=== PATIENT | female | born 2000 | race African-American/Black ===

== ENCOUNTER 2020-08-16 15:19 | Outpatient (RCR) | payer OTHER, SELFPAY ==
[2020-08-20] MEDS: RHO(D) IMMUNE GLOBULIN 300 MCG SYRINGE IM (14:04)
== END 2020-11-14 23:59 | disposition home or self-care (01) ==
LOC: ANHLAB 15:19
PROVIDERS: Visit Provider Physician Assistant
DX: Z01.83 Encounter for blood typing (principal)
CPT/HCPCS: 36415; 86850

== ENCOUNTER 2020-08-18 14:53 | Outpatient (RCR) | payer OTHER, SELFPAY | END 2020-08-30 08:34 | disposition home or self-care (01) | LOC: ANHOBOP 14:53 | PROVIDERS: Visit Provider Obstetrics & Gynecology | DX: Z29.13 Encounter for prophylactic Rho(D) immune globulin (principal); O36.0990 Maternal care for other rhesus isoimmunization, unspecified trimester, not applicable or unspecified; Z3A.00 Weeks of gestation of pregnancy not specified | CPT/HCPCS: 36415; 85461; 90384; J2790 ==

== ENCOUNTER 2020-10-28 12:48 | Outpatient (CLI) | payer OTHER, SELFPAY ==
[2020-10-28 13:19] LABS: Hematocrit 30.2 % (37.0-47.0); Hemoglobin 9.9 g/dL (12.0-15.0); Mean Corpuscular HGB Conc 32.8 g/dl (32-36); Mean Corpuscular Hemoglobin 26.5 pg (26-34); Platelet Count Result 204 k/mm3 (150-375); Red Blood Count 3.73 M/mm3 (4.2-5.4); Red Cell Distribution Width 13.5 % (11.5-14.5); White Blood Count 7.5 K/mm3 (4.5-10.0)
[2020-10-29 07:01] LABS: Rapid Plasma Reagin Non-Reactive (NonReactive)
== END 2020-10-28 14:00 | disposition home or self-care (01) ==
LOC: ANHOBOP 12:56 → ANHLDR 12:57
PROVIDERS: Visit Provider Obstetrics & Gynecology
DX: Z01.818 Encounter for other preprocedural examination (principal)
CPT/HCPCS: 36415; 85027; 86592; 86850; 86880; 86900; 86901; 86902; 99199

== ENCOUNTER 2020-10-29 10:10 | Inpatient (IN) | payer OTHER, SELFPAY ==
--- NOTE | 2020-10-15 15:06 | PC.NURSE ---
PATIENT STATES BABY IS BREECH--WAS TOLD IF BABY DOES NOT TURN,SHE WILL BE A C/S PATIENT INSTRUCTED IF SHE IS A C/S ,SHE WILL NEED TO BE IN OB 2 HOURS BEFORE SURGERY AND NOTHING BY MOUTH AFTER MIDNIGHT THE NIGHT BEFORE SURGERY PATIENT GIVEN REQUISITION FOR PRE-OP LAB DRAWN
[2020-10-29] VITALS (47 sets, daily range): BP systolic 81–136; BP diastolic 51–95; PULSE 47–90; RESP 14–18; TEMP 36.3–36.7; O2SAT 99–100; BMI 24.5
--- NOTE | 2020-10-29 10:10 | LDADM ---
This patient, Tessa Servin, was admitted to OB Post 116 on 10/29/20 at 10:10. Plans for labor, pain management and were discussed with patient. Patient/family oriented to hospital policies and general routines including ID bracelet, bed and alarms, visiting hours, pain management, procedures, bathroom and other care routines, personal items, smoking policy, room service/diet and guest tray routines, infant security routines, and visiting hours. Patient/Family are encouraged to report perceived risks to care and to ask questions if they do not understand what they are told or what they should do. See OBIX for further documentation.
--- NOTE | 2020-10-29 10:20 | PCDIET ---
Dr. Sharma at bedside, ultrasound performed. breech presentation was confirmed
--- NOTE | 2020-10-29 10:20 | PM.IMHP ---
H&P: HPI History of Present Illness Date/Time: 10/29/20 10:20 19 year old primigravida female presents for RENARD at 38w5d. complicated by breech malpresentation, tobacco use, MTHFR, RhD negative, and FGR fetus. Due to growth restriction and breech need delivery. She now presents for primary low-transverse section for delivery of breech malpresentation under spinal anesthesia I explained her condition procedure and risk involved including but not limited to bleeding infection injury to bladder bowel baby pelvic vessels DVT pneumonia wound infection UTI risk of anesthesia as well as the risk hemorrhage and depression. She understands all this accepts and agrees to proceed Chief Complaint: FGR, breech,term , elective c section Review of Systems Review of Systems: All systems reviewed & are unremarkable except as noted in HPI and below Constitutional: Constitutional: Reports no additional constitutional complaints Eyes: Eyes: Reports no additional eye complaints ENT: Reports system reviewed and no additional complaints, except as documented Cardiovascular: Cardiovascular: Reports no additional cardiovascular complaints Respiratory: Respiratory: Reports no additional respiratory complaints Gastrointestinal: Gastrointestinal: Reports no additional gastrointestinal complaints Genitourinary: Genitourinary: Reports no additional female genitourinary complaints Musculoskeletal: Musculoskeletal: Reports no additional musculoskeletal complaints Integumentary/Breasts: Skin/Breast: Reports system reviewed and no additional complaints, except as docu Neurologic: Reports system reviewed and no additional complaints, except as documented Psychiatric: Psychiatric: Reports no additional psychiatric complaints Endocrine: Endocrine: Reports no additional endocrine complaints Hematologic/Lymphatic: Hematologic/Lymphatic: Reports no additional hematologic/lymphatic complaints Allergic/Immunologic: Allergic/Immunologic: Reports no additional allergic/immunologic complaints [facility] Past Medical History Medical History (Updated 10/29/20 @ 11:45 by Nestor Barroso MD) ADD (attention deficit disorder) 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 FGR ( growth retardation) History of candidal vulvovaginitis History of chlamydia History of gonorrhea History of trichomonal vaginitis Oppositional defiant behavior Rh negative status during Smoker STD (sexually transmitted disease) complicating , antepartum Term UTI (urinary tract infection) during Surgical History Surgical History (Updated 10/29/20 @ 11:46 by Nestor Barroso MD) History of adenoidectomy Family History Family History (Updated 10/29/20 @ 10:46 by Nestor Barroso MD) Grandparent Family history of heart disease in male family member before age 55 Multiple sclerosis Mother Bipolar 1 disorder Social History Social History (Updated 10/29/20 @ 10:46 by Nestor Barroso MD) Years smoked: 5 Smoking status: Current every day smoker Tobacco type: cigarettes Second hand tobacco smoke exposure: Yes Alcohol intake: former Substance use: former Substance use type: marijuana Living arrangements: with family Occupation/Education: unemployed Gender identity (if verbalized by the patient): Female Sexual Orientation (if Verbalized by the Patient): Straight or Heterosexual Spiritual care concerns: No Agree to blood products: Yes Meds Home Medications and Allergies Home Medications Medication Instructions Recorded Confirmed Type folic acid 1 mg PO BID 10/15/20 10/15/20 History prenat.vits,gaston,ioq-ifho-rmsod 1 tablet PO DAILY 10/15/20 10/15/20 History [ #2] Allergies Allergy/AdvReac Type Severity Reaction Status Date / Time No Known Allergies Allergy Verified 10/15/20 14:41
--- NOTE | 2020-10-29 10:22 | WPDHPUPDATE1 ---
History and Physical Update Update Date/Time: 10/29/20 10:22 History and Physical has been reviewed, including an updated exam of the patient. There are NO changes in the patient's condition. Risks, benefits, and alternatives have been discussed and questions answered. Patient agrees to proceed with procedure. 19 year old primigravida female presents for RENARD at 38w5d. complicated by breech malpresentation, tobacco use, MTHFR, RhD negative, and FGR fetus. Due to growth restriction and breech need delivery. She now presents for primary low-transverse section for delivery of breech malpresentation under spinal anesthesia I explained her condition procedure and risk involved including but not limited to bleeding infection injury to bladder bowel baby pelvic vessels DVT pneumonia wound infection UTI risk of anesthesia as well as the risk hemorrhage and depression. She understands all this accepts and agrees to proceed
--- NOTE | 2020-10-29 10:23 | WPDOBADMIT ---
Obstetrics - Admit Note Admission Note: record reviewed. No pertinent additions to the history and/or any subsequent changes in the physical findings that are not consistent with the expected course of the were found. Additions to the history and/or subsequent changes in the physical findings follow. None. 19 year old primigravida female presents for RENARD at 38w5d. complicated by breech malpresentation, tobacco use, MTHFR, RhD negative, and FGR fetus. Due to growth restriction and breech need delivery. She now presents for primary low-transverse section for delivery of breech malpresentation under spinal anesthesia I explained her condition procedure and risk involved including but not limited to bleeding infection injury to bladder bowel baby pelvic vessels DVT pneumonia wound infection UTI risk of anesthesia as well as the risk hemorrhage and depression. She understands all this accepts and agrees to proceed
[2020-10-29] MEDS: LACTATED RINGERS 1,000 ML 125 ML IV CONT ×2 (10:57→11:56)
--- NOTE | 2020-10-29 11:26 | WPDANESEPPF ---
Anes - Initial Pre Proc Eval Procedure: Operation Date: 10/29/20 12:00 Proposed Procedures p Primary Section - Nestor Barroso MD Date/Time: 10/29/20 11:26 Surgeon: Nestor Barroso MD Pre Op Diagnosis: C/Section Patient Data Age: 19 Gender: F Height: 5 ft 1 in Weight: 59 kg Last Vital Signs Pulse 54 L 10/29/20 11:01 BP 108/64 10/29/20 11:01 Allergies Allergy/AdvReac Type Severity Reaction Status Date / Time No Known Allergies Allergy Verified 10/15/20 14:41 Home Medications Medication Instructions Recorded Confirmed Type folic acid 1 mg PO BID 10/15/20 10/15/20 History prenat.vits,gaston,ucx-fybs-wqsnk 1 tablet PO DAILY 10/15/20 10/15/20 History [ #2] Patient hx anesthesia problems: none Family hx anesthesia problems: none PMFSH Past Medical History Medical History ADD (attention deficit disorder) Compound heterozygous MTHFR mutation [id number] malpresentation FGR ( growth retardation) History of candidal vulvovaginitis History of chlamydia History of gonorrhea History of trichomonal vaginitis Oppositional defiant behavior Rh negative status during Smoker STD (sexually transmitted disease) complicating , antepartum Term UTI (urinary tract infection) during Family History Family History Grandparent Family history of heart disease in male family member before age 55 Multiple sclerosis Mother Bipolar 1 disorder Social History Social History Years smoked: 5 Smoking status: Current every day smoker Tobacco type: cigarettes Second hand tobacco smoke exposure: Yes Alcohol intake: former Substance use: former Substance use type: marijuana Living arrangements: with family Occupation/Education: unemployed Gender identity (if verbalized by the patient): Female Sexual Orientation (if Verbalized by the Patient): Straight or Heterosexual Spiritual care concerns: No Agree to blood products: Yes Anes - Eval Final PreProcedure Day of Procedure 10/29/20 11:26 Patient weight: normal Heart: regular rate and rhythm Lungs: clear to auscultation Airway: Mallampati scale class II Neurological: alert and oriented Last oral intake: >/= 8 hours ASA classification: III Emergent: no Anesthetic plan: proceed Anesthesia type and monitoring: regional spinal and standard monitoring Informed Consent: The patient's anesthetic plan and its attendant risks and benefits were discussed with the patient/family/POA. Questions were solicited and answers provided to the satisfaction of the patient/family/POA.
[2020-10-29] MEDS: ceFAZolin 2 GM/D5W 50 ML 2 GM/50 ML BAG IVPB (12:21)
[2020-10-29 12:23] LABS: Amphetamine Screen Urine Negative (Negative); Barbiturate Screen Urine Negative (Negative); Benzodiazepines Screen Urine Negative (Negative); Cannabinoid Screen Urine Positive (Negative); Cocaine Screen Urine Negative (Negative); Methadone Screen Urine Negative (Negative); Opiate Screen Urine Negative (Negative); Phencyclidine Screen Urine Negative (Negative)
--- NOTE | 2020-10-29 13:25 | P.PCNOB_ITS ---
OB - Delivery Note Procedure Delivery date: 10/29/20 Procedure: Procedures Operation Date: 10/29/20 12:00 < primary low-transverse section and delivery of viable male and placenta with breech extraction > Intrapartal events: Other ( growth restriction malpresentation breech) Induction method: none Delivery monitor: external FHT and external uterine Route of delivery: (Primary low-transverse section with delivery of viable male infant and placenta breech extraction) Episiotomy description: None Laceration Description: None Specimen: Yes (Placenta, cord blood, cord blood gas) Quantitative Blood Loss (ml): 500 Anesthesia type: Spinal Disposition: floor Complications: None Narrative: See operative report [place] Baby Date of : 10/29/20 Time of : 12:50 Weeks of gestation at delivery: 38 gender: Male ([place]) Weight (pounds): 6 Weight (ounces): 9 presentation: disha breech Placenta delivery description: Manual Removal and Normal Configuration cord vessel description: 3 Vessels score one minute: 8 score five minutes: 9
--- NOTE | 2020-10-29 13:29 | P.OP_ITS ---
Procedure Note - Detailed Date of procedure: 10/29/20 Pre-op diagnosis: C/Section Term growth restriction malpresentation disha breech MTHFR Rh negative Post-op diagnosis: same (Delivered viable male and placenta) Procedure performed: Primary low-transverse section with delivery of viable male and placenta with breech extraction Description of procedure: Informed consent obtained and the patient was taken to the operating room where she was given a spinal anesthetic she was then placed in the supine position where Bruce catheter was then inserted into her urinary bladder and her abdomen was then prepped and then draped in the usual sterile fashion. A time-out was performed. A Pfannenstiel incision was made to the skin and the abdomen was opened in layers hemostasis obtained by cauterization after entering the fascia in a transverse fashion the fascia was undermined inferior and superior following this the rectus muscles were the midline the peritoneum was then entered with electrocautery and extended bilaterally digitally a transverse incision was made to the lower uterine segment and rupture membranes revealed clear fluid the buttocks was then delivered via the abdominal incision with the arm swept across the chest anterior and the cord lengthened the vertex was then delivered via the modified Merocel maneuver. The cord was clamped and cut the infant was stimulated spontaneous respirations and cry scores 8 9 handed to the nursery nurse in attendance cord gas obtained cord blood obtained and the placenta was then delivered intact with a three-vessel cord. The uterus contracted well with Pitocin given intravenously and then 10 units into the myometrium. Blood clots membranes removed from the intrauterine cavity with the uterus externalized the uterine incision was then repaired in 2 layers with 0 Vicryl in a running interlocking fashion the 2nd being an imbricating stitch blood clots removed from the cul-de-sac both lateral margins and the uterus was returned to the peritoneal cavity after irrigation the sponge needle instrument counts correct the anterior peritoneum and rectus muscles reapproximated with 0 Vicryl suture in a running fashion. Fascia was closed with 2. Quill S RS system bilaterally and the Joni's fascia reapproximated 3 0 plain. The skin was closed with absorbable nica the insorb device. Following this the Dermabond placed to the skin and Mepilex dressing placed over across the incision patient was taken to the recovery room in stable condition counts correct complications none. Implants: None Anesthesia: spinal Surgeon: Nestor Barroso MD Sprayer Insecticide: anesthesiology physician assistant x2 Estimated blood loss (mL): 500 IV fluids (mL): 2,500 Urine output (mL): 150 Drains: No Packing: No Pathology: yes (Placenta, cord blood, cord blood gases) Complications: None Condition: stable Disposition: floor Findings: Viable male infant disha breech presentation delivered via primary C- section with spontaneous respirations and cry scores 8 and 9 at 1 and 5 minutes born at 12:50 p.m. weighing 6 lb 9 oz 2990 g taken to the nursery in stable condition had a normal transition normal exam. Placenta delivered 1251 intact three-vessel cord Uterus tubes ovaries normal VTE prevention SCDs Antibiotic prophylaxis Ancef 2 g Counts correct Complications none Taken to recovery room in stable condition Patient's mother was in for delivery
--- NOTE | 2020-10-29 13:38 | PM.OBDSVD ---
DS: Admitting Diagnosis Admitting Diagnosis Admitting Diagnosis: Term growth restricted malpresentation breech MTHFR Rh negative Elective section DS: Discharge Diagnosis Discharge Diagnosis (1) Term delivered: Code(s): O80 - Encounter for full-term uncomplicated delivery Status: Acute (2) Delivery by elective section: Code(s): O82 - Encounter for delivery without indication Status: Acute (3) Breech presentation: Code(s): O32.1XX0 - Maternal care for breech presentation, not applicable or unspecified Status: Acute (4) malpresentation: Code(s): O32.9XX0 - Maternal care for malpresentation of fetus, unspecified, not applicable or unspecified Status: Acute (5) Smoker: Code(s): F17.200 - Nicotine dependence, unspecified, uncomplicated Status: Acute (6) Rh negative status during : Code(s): O26.899 - Other specified related conditions, unspecified trimester; Z67.91 - Unspecified blood type, Rh negative Status: Acute (7) FGR ( growth retardation): Status: Acute (8) Compound heterozygous MTHFR mutation C677T/[id number]: Code(s): Z15.89 - Genetic susceptibility to other disease Status: Acute (9) STD (sexually transmitted disease) complicating , antepartum: Code(s): O98.319 - Other infections with a predominantly sexual mode of transmission complicating , unspecified trimester; A64 - Unspecified sexually transmitted disease Status: Acute OB - DS: Summary Hospital Course Time spent discussing smoking cessation with patient: 3 to 10 minutes OB Procedures : Ultrasound OB Procedures Intrapartum: low cervical, transverse OB Procedures: : RHo (D) lg Peripartum Data Delivery Method: Section (Primary low-transverse with breech extraction) Laceration Description: None Episiotomy description: None Procedures: Procedures Operation Date: 10/29/20 12:00 < primary low-transverse section with delivery of viable male and placenta breech extraction > complications: none [place] 1: Gender: Male ([place]) Disposition of : home Status at Discharge Functional status at discharge: independent ambulation Overall status at discharge: patient is back to baseline Time Spent with Patient Time attestation: Total time spent providing and/or coordinating discharge services: Time spent: Less than 30 minutes DS: Data Data Completed and Pending Labs on day of discharge: Labs from last 24 hours 10/29/20 10/29/20 11:56 10:56 Urine Opiates Screen Negative Urine Methadone Screen Negative Ur Barbiturates Screen Negative Ur Phencyclidine Scrn Negative Ur Amphetamine Screen Negative U Benzodiazepines Scrn Negative Urine Cocaine Screen Negative U Cannabinoids Screen Positive A Blood Type O Negative Discharge Plan Discharge Attending physician on discharge: Nestor Barroso Discharging Clinician: Nestor Barroso Anticipated Discharge Date/Time: 10/31/20 13:41 Patient Disposition: Home, Self-Care Activity: no straining, no driving and may drive after 2 weeks Diet: as tolerated and regular Wound Care Instructions: follow printed instructions Discharge Instructions: Routine Patient Instructions: Antibiotic Form Stand Alone Forms: General Discharge Information Follow-up/Referrals: Nestor Barroso MD [Physician] - 3 Weeks Discharge Medications: No Action folic acid 1 mg Tablet 1 mg PO BID RF: 0 #2 Tablet 1 tablet PO DAILY RF: 0 Date of admission: 10/29/20 10:10 Primary Care Provider: Ngoc Lozano Admitting Provider: Nestor Barroso Attending physician on admission: Nestor Barroso Condition: Stable
[2020-10-29] MEDS: OXYTOCIN 30 UNITS/NS 500 ML 30 UNITS/500 ML BAG 125 UNITS IV CONT (14:36)
[2020-10-29] MEDS: ONDANSETRON INJ 4 MG/2 ML VIAL IV PUSH (15:21)
--- NOTE | 2020-10-29 15:40 | OBPPTRN ---
Patient transferred to post room # 280 via stretcher. Support person present. Oriented to unit, room, information board, rooming in, admission packet and security measures. Patient verbalizes understanding.
[2020-10-29] MEDS: POLYSACCHARIDE IRON COMPLEX 150 MG CAPSULE PO (18:40)
[2020-10-29] MEDS: KETOROLAC 30 MG/ML VIAL (*BKC) IV PUSH (18:41)
[2020-10-29] MEDS: DOCUSATE SODIUM 100 MG CAPSULE PO (18:41)
[2020-10-30 01:40] VITALS: BP 112/61; PULSE 56; RESP 14; TEMP 36.8
[2020-10-30 04:00] VITALS: BP 111/65; PULSE 62; RESP 14; TEMP 36.9
[2020-10-30] MEDS: KETOROLAC 30 MG/ML VIAL (*BKC) IV PUSH (04:06)
[2020-10-30 05:51] LABS: Basophils Percent Auto 0.3 % (0.2-1.2); Eosinophils Absolute Auto 0.1 K/mm3 (0-0.3); Eosinophils Percent Auto 0.7 % (0-4.4); Hematocrit 26.7 % (37.0-47.0); Hemoglobin 8.6 g/dL (12.0-15.0); Immature Granulocyte Absolute 0.05 K/mm3 (0.00-0.031); Immature Granulocyte Percent A 0.6 % (0-0.5); Lymphocytes Absolute Auto 1.69 K/mm3 (0.9-3.2); Lymphocytes Percent Auto 19.6 % (18.3-44.2); Mean Corpuscular HGB Conc 32.2 g/dl (32-36); Mean Corpuscular Hemoglobin 26.2 pg (26-34); Mean Corpuscular Volume 81.4 fl (80-100); Mean Platelet Volume 12.6 fl (7.4-10.4); Monocytes Absolute Auto 0.7 K/mm3 (0.1-0.6); Monocytes Percent Auto 7.9 % (2.6-8.5); Neutrophils Absolute Auto 6.1 K/mm3 (1.3-6.7); Neutrophils Percent Auto 70.9 % (45.5-73.1); Platelet Count Result 155 k/mm3 (150-375); Red Blood Count 3.28 M/mm3 (4.2-5.4); Red Cell Distribution Width 13.4 % (11.5-14.5); White Blood Count 8.6 K/mm3 (4.5-10.0)
[2020-10-30] MEDS: SIMETHICONE 80 MG TAB.CHEW PO ×3 (07:41→23:43)
[2020-10-30] MEDS: POLYSACCHARIDE IRON COMPLEX 150 MG CAPSULE PO ×2 (07:41→16:35)
[2020-10-30] MEDS: MULTIVIT/MIN/PREN/FOL AC/IRON TABLET 1 TAB PO (07:41)
[2020-10-30] MEDS: HYDROcodone/acetaminophen (*CRX) 10-325 MG TABLET 1 TAB PO ×2 (07:42→16:35)
[2020-10-30] MEDS: DOCUSATE SODIUM 100 MG CAPSULE PO ×2 (07:42→16:35)
[2020-10-30 08:00] VITALS: BP 101/56; PULSE 50; RESP 20; TEMP 36.3
--- NOTE | 2020-10-30 10:04 | PM.OBDSVD ---
DS: Admitting Diagnosis Admitting Diagnosis Admitting Diagnosis: OB - DS: Summary OB Procedures : None OB Procedures Intrapartum: OB Procedures: : None Peripartum Data Procedures: Procedures Operation Date: 10/29/20 12:00 Actual Procedure Side Surgeon p Section Nestor Barroso MD Time Spent with Patient Time attestation: Total time spent providing and/or coordinating discharge services: DS: Data Data Completed and Pending Labs on day of discharge: Labs from last 24 hours 10/30/20 10/30/20 10/29/20 04:17 04:16 11:56 WBC 8.6 RBC 3.28 L Hgb 8.6 L Hct 26.7 L MCV 81.4 MCH 26.2 MCHC 32.2 RDW 13.4 Plt Count 155 MPV 12.6 H Immature Gran % (Auto) 0.6 H Neut % (Auto) 70.9 Lymph % (Auto) 19.6 [place] % (Auto) 7.9 Eos % (Auto) 0.7 Baso % (Auto) 0.3 Lymph # (Auto) 1.69 [place] # (Auto) 0.7 H Eos # (Auto) 0.1 Baso # (Auto) 0.0 Abs Immat Gran (auto) 0.05 H Absolute Neuts (auto) 6.1 Absolute Nucleated RBC 0.0 Nucleated RBC % 0.0 Urine Opiates Screen Negative Urine Methadone Screen Negative Ur Barbiturates Screen Negative Ur Phencyclidine Scrn Negative Ur Amphetamine Screen Negative U Benzodiazepines Scrn Negative Urine Cocaine Screen Negative U Cannabinoids Screen Positive A Blood Type O Negative Antibody Screen TNP Screen Negative Baby's Blood Type O pos Baby's MINDY Positive Doses of RhIg Required 1 10/29/20 10:56 WBC RBC Hgb Hct MCV MCH MCHC RDW Plt Count MPV Immature Gran % (Auto) Neut % (Auto) Lymph % (Auto) [place] % (Auto) Eos % (Auto) Baso % (Auto) Lymph # (Auto) [place] # (Auto) Eos # (Auto) Baso # (Auto) Abs Immat Gran (auto) Absolute Neuts (auto) Absolute Nucleated RBC Nucleated RBC % Urine Opiates Screen Urine Methadone Screen Ur Barbiturates Screen Ur Phencyclidine Scrn Ur Amphetamine Screen U Benzodiazepines Scrn Urine Cocaine Screen U Cannabinoids Screen Blood Type O Negative Antibody Screen Screen Baby's Blood Type Baby's MINDY Doses of RhIg Required Discharge Plan Discharge Attending physician on discharge: Nestor Barroso Discharging Clinician: Nestor Barroso Anticipated Discharge Date/Time: 10/31/20 13:41 Patient Disposition: Home, Self-Care Activity: no straining, no driving and may drive after 2 weeks Diet: as tolerated and regular Wound Care Instructions: follow printed instructions Discharge Instructions: Routine Patient Instructions: Antibiotic Form, How to Stop Smoking (DC) Stand Alone Forms: General Discharge Information Follow-up/Referrals: Nestor Barroso MD [Physician] - 3 Weeks Discharge Medications: New hydrocodone-acetaminophen 5-325 mg Tablet 1 tablet PO Q6H PRN (Reason: breakthrough pain) Qty: 28 RF: 0 ibuprofen 600 mg Tablet 600 mg PO Q6H Qty: 90 RF: 1 Continued folic acid 1 mg Tablet 1 mg PO BID RF: 0 #2 Tablet 1 tablet PO DAILY RF: 0 Date of admission: 10/29/20 10:10 Primary Care Provider: Ngoc Lozano Admitting Provider: Nestor Barroso Attending physician on admission: Nestor Barroso Condition: Stable
--- NOTE | 2020-10-30 10:05 | PM.OBPNVD ---
OB - PN: Subj Subjective Date/time seen: 10/30/20 10:05 No c/o. well. OB - PN: Obj Data Labs CBC & Chem 7: 10/30/20 04:16 Labs: Laboratory Results - last 24 hr 10/29/20 10/29/20 10/30/20 10:56 11:56 04:16 WBC 8.6 RBC 3.28 L Hgb 8.6 L Hct 26.7 L MCV 81.4 MCH 26.2 MCHC 32.2 RDW 13.4 Plt Count 155 MPV 12.6 H Immature Gran % (Auto) 0.6 H Neut % (Auto) 70.9 Lymph % (Auto) 19.6 [place] % (Auto) 7.9 Eos % (Auto) 0.7 Baso % (Auto) 0.3 Lymph # (Auto) 1.69 [place] # (Auto) 0.7 H Eos # (Auto) 0.1 Baso # (Auto) 0.0 Abs Immat Gran (auto) 0.05 H Absolute Neuts (auto) 6.1 Absolute Nucleated RBC 0.0 Nucleated RBC % 0.0 Urine Opiates Screen Negative Urine Methadone Screen Negative Ur Barbiturates Screen Negative Ur Phencyclidine Scrn Negative Ur Amphetamine Screen Negative U Benzodiazepines Scrn Negative Urine Cocaine Screen Negative U Cannabinoids Screen Positive A Blood Type O Negative Antibody Screen Screen Baby's Blood Type Baby's MINDY Doses of RhIg Required 10/30/20 04:17 WBC RBC Hgb Hct MCV MCH MCHC RDW Plt Count MPV Immature Gran % (Auto) Neut % (Auto) Lymph % (Auto) [place] % (Auto) Eos % (Auto) Baso % (Auto) Lymph # (Auto) [place] # (Auto) Eos # (Auto) Baso # (Auto) Abs Immat Gran (auto) Absolute Neuts (auto) Absolute Nucleated RBC Nucleated RBC % Urine Opiates Screen Urine Methadone Screen Ur Barbiturates Screen Ur Phencyclidine Scrn Ur Amphetamine Screen U Benzodiazepines Scrn Urine Cocaine Screen U Cannabinoids Screen Blood Type O Negative Antibody Screen TNP Screen Negative Baby's Blood Type O pos Baby's MINDY Positive Doses of RhIg Required 1 OB - PN A/P Time Spent With Patient Time: Total time spent is greater than 50% in coordination of care (as documented) at patient's floor/unit and/or counseling patient: Exam GI: Inspection: normal to inspection and other (bandage clean/dry) GI Palp: Yes abdominal tenderness Percussion: Yes normal to percussion Auscultation: normal bowel sounds
--- NOTE | 2020-10-30 10:51 | WPDANLDNPN2 ---
Anes-Prog Note L&D-Neuraxial Date/Time: 10/30/20 10:51 Neuraxial medications: intrathecal PF morphine Opiod-related complaints: none Patient feedback: Patient satisfied with post-operative pain management.
--- NOTE | 2020-10-30 10:51 | WPDANLDPN2 ---
Anes-Prog Note L&D Date/Time: 10/30/20 10:51 Comfortable throughout: section Neuraxial method: spinal Epidural/Spinal procedure site: clean & non-tender Neuro status: Neuro function grossly intact. Cardiovascular status: normal Respiratory status: normal Airway patency: baseline Mental status: baseline Post-Op hydration status: normal Vital Signs: Last Vital Signs Temp 36.3 C L 10/30/20 08:00 Pulse 50 L 10/30/20 08:00 Resp 20 10/30/20 08:00 BP 101/56 L 10/30/20 08:00 Pulse Ox 100 10/29/20 15:55 Pain score (VAS): 0 I/O: Intake & Output 10/29/20 10/30/20 10/30/20 23:59 07:59 15:59 Intake Total 700 1100 Output Total 1350 700 Balance -650 400 Post-procedural complaints: none Patient feedback: Patient satisfied with anesthetic care.
[2020-10-30] MEDS: IBUPROFEN 600 MG TABLET PO (12:28)
[2020-10-30] MEDS: HYDROcodone/acetaminophen (*CRX) 5-325 MG TABLET 1 TAB PO (12:28)
[2020-10-30] MEDS: RHO(D) IMMUNE GLOBULIN 300 MCG/2 ML SYRINGE IM (12:29)
[2020-10-30 13:00] VITALS: BP 100/60; PULSE 60; RESP 18; TEMP 36.8
--- NOTE | 2020-10-30 15:05 | PCCCNOTE ---
Addendum entered by DILLON Watkins 10/31/20 11:18: 5 08:00 Received email from [facility] stating the report was reviewed and assessed by a Ink Blender and was also approved by a aluminum fabrication supervisor. The information provided did not meet one of the criteria for an investigation. The information has been documented and will be kept on file. Should any more information be discovered or have any additional concerns, please contact [facility] again. Original Note: Per Care Coordination: Received notification pt. tested positive for marijuana on her urine drug screen. Baby's meconium is pending and will likely be a few days before resulted. Pt. reports her and her first baby, baby boy, will be living with her Aunt Tanja Bruno in [place]. Pt. reports FOStephon is incarcerated and will be in residential for a few years, and pt. did not want to disclose why. Pt. reports ANASTASIA is not in the picture and states has support from her mother and sister in [place], as well as her Aunt Tanja. Pt. reports she has everything needed for and denies need for resource. Pt. reports she is already set up with [employer] and [employer] and will have baby boy on her Medicaid insurance until she gets baby set up on his own insurance. Pt. reports she uses marijuana to help with her anxiety. Pt. denies any other drug use. Pt. denies any prior involvement with [facility]. Report was filed with [facility] online - Intake #[id number]. CC gave verbal report to CHACHO Ferris.
--- NOTE | 2020-10-30 18:08 | PC.NURSE ---
Breast pump provided due to moms request. Instructions given on breast pump care and usage, pumping schedule, nipple care, and collection and storage of breast milk. Encouraged [id number], breast massage and manual expression to stimulate supply. Assessed patient for correct flange size, placement and draw. Patient verbalizes and demonstrates understanding of instructions.
[2020-10-30 18:45] VITALS: BP 102/60; PULSE 61; RESP 18; TEMP 36.9
[2020-10-31 00:30] VITALS: TEMP 37.8
[2020-10-31] MEDS: HYDROcodone/acetaminophen (*CRX) 5-325 MG TABLET 1 TAB PO ×3 (00:30→13:38)
[2020-10-31] MEDS: IBUPROFEN 600 MG TABLET PO ×3 (00:30→13:37)
[2020-10-31] MEDS: DOCUSATE SODIUM 100 MG CAPSULE PO (07:36)
[2020-10-31] MEDS: SIMETHICONE 80 MG TAB.CHEW PO (07:36)
[2020-10-31] MEDS: LANOLIN (LANSINOH) 7.5 GM CREAM 1 APPLIC TOPICAL (07:36)
[2020-10-31] MEDS: MULTIVIT/MIN/PREN/FOL AC/IRON TABLET 1 TAB PO (07:37)
[2020-10-31] MEDS: POLYSACCHARIDE IRON COMPLEX 150 MG CAPSULE PO (07:37)
[2020-10-31 08:00] VITALS: BP 112/75; PULSE 90; RESP 18; TEMP 36.6
--- NOTE | 2020-10-31 09:53 | PC.NURSE ---
Self care and infant care discharge instructions given including follow up visit date and time. Mother verbalized understanding. No questions or concerns. Pt. mother at side.
== END 2020-10-31 14:55 | disposition home or self-care (01) | DRG 540 ==
LOC: ANHOBPP 13:42 → ANHOB2 15:44
PROVIDERS: Admitting Provider Obstetrics & Gynecology; PCP Pediatrics; Visit Provider Obstetrics & Gynecology
PROC: 10D00Z1 Extraction of Products of Conception, Low, Open Approach (ICD-10-PCS; CPT 59514; principal; 2020-10-29 12:00)
DX: O32.1XX0 Maternal care for breech presentation, not applicable or unspecified (principal); Z37.0 Single live birth; Z3A.38 38 weeks gestation of pregnancy; O36.5930 Maternal care for other known or suspected poor fetal growth, third trimester, not applicable or unspecified; O99.284 Endocrine, nutritional and metabolic diseases complicating childbirth; E72.12 Methylenetetrahydrofolate reductase deficiency; O36.0930 Maternal care for other rhesus isoimmunization, third trimester, not applicable or unspecified; O99.334 Smoking (tobacco) complicating childbirth; F17.210 Nicotine dependence, cigarettes, uncomplicated; O99.344 Other mental disorders complicating childbirth; F98.8 Other specified behavioral and emotional disorders with onset usually occurring in childhood and adolescence
CPT/HCPCS: 36415; 80307; 85025; 85461; 86900; 86901; 90384; A9270; J0131; J0690; J1885; J2274; J2370; J2405; J2590; J2790; J7120